=== PATIENT | male | born 1990 | race Caucasian/White ===

== ENCOUNTER 2023-10-13 16:56 | Emergency (ER) | payer OTHER ==
[2023-10-13] MEDS ORDERED: Midazolam 1 MG/ML 2 ML SDV IV ONE (16:57)
[2023-10-13] MEDS ORDERED: Sodium Chloride 0.9% 10 ML Syringe FLUSH PRN (17:02)
[2023-10-13] MEDS ORDERED: Midazolam 1 MG/ML 2 ML SDV IVPUSH ONE (17:06)
[2023-10-13] MEDS ORDERED: Ondansetron 4 MG/2 ML SDV IVPUSH ONE ×2 (17:06→19:33)
[2023-10-13] MEDS ORDERED: Prochlorperazine 10 MG in Sodium Chloride 0.9% 50 ML IV ONE (17:07)
[2023-10-13] MEDS ORDERED: Prochlorperazine 10 MG/2 ML SDV ONE (17:07)
[2023-10-13] MEDS ORDERED: LORazepam 2 MG/ML SDV IVPUSH STA (17:10)
[2023-10-13] MEDS ORDERED: Sodium Chloride 0.9% 1,000 ML IV SCH (17:15)
[2023-10-13 17:20] LABS: HEMATOCRIT 45.7 % (38.3-50.1); HEMOGLOBIN 14.7 g/dL (12.9-17.7); MEAN CORPUSCULAR HEMOGLOBIN 27.1 pg (27.0-33.3); MEAN CORPUSCULAR HGB CONC 32.1 g/dL (28.7-35.3); MEAN CORPUSCULAR VOLUME 84.5 fL (80.8-98.7); MEAN PLATELET VOLUME 7.3 fL (6.7-11.0); PLATELET COUNT,PLT 445 x10(3)uL (117-477); RED BLOOD CELL COUNT 5.41 x10(6)uL (3.90-5.90); RED CELL DISTRIBUTION WIDTH 15.4 % (12.4-15.0); WHITE BLOOD CELL COUNT,WBC 17.4 x10-3/uL (3.2-10.1)
[2023-10-13 17:28] LABS: INR 1.06 (1.00-1.24); PROTHROMBIN TIME 10.9 sec (9.0-11.1)
[2023-10-13 17:29] LABS: A/G RATIO 0.9; ALANINE AMINOTRANSFERASE,ALT 82 U/L (12-36); ALBUMIN 3.4 g/dL (3.5-5.2); ALKALINE PHOSPHATASE 91 IU/L (56-112); ASPARTATE AMNIOTRANSFERASE,AST 70 IU/L (5-25); BILIRUBIN TOTAL 0.2 mg/dL (0.1-1.3); BLOOD UREA NITROGEN,BUN 15 mg/dL (7-18); BUN/CREATININE RATIO 8.8 (9-20); CALCIUM 9.1 mg/dL (8.6-10.2); CARBON DIOXIDE,CO2 15 mmol/L (21-32); CHLORIDE,CL 102 mmol/L (100-110); CREATININE 1.7 mg/dL (0.70-1.30); ESTIMATED GFR 54 mL/min (>60); GLUCOSE RANDOM 334 mg/dL (80-116); PROTEIN TOTAL,TP 7.1 g/dL (6.0-8.0); SODIUM,NA 141 mmol/L (135-145)
[2023-10-13 17:30] LABS: PTT,PARTIAL THROMBOPLSTIN TIME 27.1 SECONDS (24.4-33.2)
[2023-10-13 17:32] LABS: AMPHETAMINES SCREEN, URINE NEGATIVE (NEGATIVE); BARBITURATE SCREEN,URINE NEGATIVE (NEGATIVE); BENZODIAZEPINES SCREEN,URINE NEGATIVE (NEGATIVE); BUPRENORPHINE SCREEN,URINE NEGATIVE (NEGATIVE); METHADONE SCREEN, URINE NEGATIVE (NEGATIVE); METHAMPHETAMINE SCREEN, URINE NEGATIVE (NEGATIVE); OXYCODONE SCREEN,URINE NEGATIVE (NEGATIVE); THC SCREEN,URINE POSITIVE (NEGATIVE)
[2023-10-13 17:34] LABS: EOSINOPHILS PERCENT MAN 1 % (0-5); LYMPHOCYTES PERCENT MAN 25 % (13-37); MONOCYTES PERCENT MAN 6 % (4-12); POTASSIUM,K 2.4 mmol/L (3.5-5.3); SEG NEUTROPHILS PERCENT MAN 68 % (46-82)
[2023-10-13] MEDS ORDERED: Metoprolol Tartrate 5 MG/5 ML SDV ONE ×2 (17:41→17:43)
[2023-10-13] MEDS ORDERED: LORazepam 2 MG/ML SDV IVPUSH ONE (17:51)
[2023-10-13] MEDS ORDERED: Heparin Sodium 5,000 Units/ML Vial IVPUSH ONE (18:00)
[2023-10-13] MEDS ORDERED: Heparin Sodium/0.45% NaCl 500 ML IV SCH (18:02)
[2023-10-13 18:03] LABS: BASE EXCESS VENOUS,POC -21 mmol/L (-2 - 3+); PCO2 VENOUS,POC 34 mmHg (41-51); PH VENOUS,POC 7.04 pH Units (7.32-7.43)
[2023-10-13] MEDS ORDERED: Norepinephrine Bit/D5W Premix 250 ML ONE (18:15)
[2023-10-13] MEDS ORDERED: Heparin Sodium/0.45% NaCl 500 ML IV STA (18:23)
[2023-10-13] MEDS ORDERED: Aspirin 300 MG Supp RECTAL SCH (18:45)
[2023-10-13] MEDS ORDERED: Metoprolol Tartrate 5 MG in Sodium Chloride 0.9% 50 ML IV ONE (19:43)
[2023-10-13] MEDS ORDERED: Metoprolol Tartrate 5 MG in Sodium Chloride 0.9% 50 ML IV STA (19:44)
[2023-10-13] MEDS ORDERED: Metoprolol Tartrate 5 MG/5 ML SDV IVPUSH STA (19:47)
[2023-10-13] MEDS ORDERED: Metoprolol Tartrate 5 MG/5 ML SDV IVPUSH ONE (19:47)
== END 2023-10-13 18:58 ==
LOC: FB.ED 16:56 → MERGE 16:56 → FB.ED 18:58
DX: I21.3 ST elevation (STEMI) myocardial infarction of unspecified site (principal); I25.10 Atherosclerotic heart disease of native coronary artery without angina pectoris
CPT/HCPCS: 36415; 51702; 71045; 80053; 80307; 84484; 85025; 85610; 85730; 92950; 93005; 93010; 96361; 96365; 96367; 96375; 96376; 99285; 99291-25; 99292; A9270-GY; J0780; J1644; J2060; J2250; J2405; J3490; J7030